=== PATIENT | female | born 1965 | race Two or more races ===

== ENCOUNTER 2019-06-12 20:29 | Emergency (ER) | payer SELFPAY ==
[~2019-06-12] VITALS: Ht 177.8 cm; Wt 93.0 kg
[~2019-06-12 20:29] MED LIST: NKM; VICODIN 5-5001 EACH PO
--- NOTE | 2019-06-12 21:05 | NUR ---
ED Nurse Note: PT WALKED IN C/O MID ABD PAIN X3DAYS. PT STATES NVD. PT DENIES EATING,DRINKING OR OTHER CAUSES FOR THE PAIN. PT STATES DIFFICULTY URINATING. VSS, NAD, ERMD AT BEDSIDE, FAMILY AT BEDSIDE. WILL CONTINUE TO MONITOR PATIENT.
[2019-06-12] MEDS ORDERED: Morphine Sulfate 4mg/ml Inj (IV USE ONLY) IVP ONE (21:15)
--- NOTE | 2019-06-12 21:15 | NUR ---
ED Nurse Note: BLOOD AND URINE COLLECTED AND SENT TO LAB.
--- NOTE | 2019-06-12 21:15 | Emergency Room Report ---
History of Present Illness General Chief Complaint: Abdominal Pain Source: Patient Present Illness [facility] This a 54-year-old female with history of high blood pressure. She presents with chief complaint abdominal pain. Onset for last 3 days but worse today. Pain is sharp and crampy. Has nausea and vomiting and diarrhea. No fever chills. No trauma. No urinary complaint. Worse with movement. Better with rest. Pain is 9 out of 10. Allergies: Coded Allergies: No Known Allergies (Unverified , 06/12/19) Patient History Past Medical History: see triage record, old chart reviewed, HTN Past Surgical History: none Pertinent Family History: none Social History: Denies: smoking Now: No Immunizations: other Reviewed Nursing Documentation: PMH: Agreed; PSxH: Agreed Nursing Documentation-PMH Hx Hypertension: Yes Hx Gastrointestinal Problems: Yes - gallstone Review of Systems Eye: Denies: eye pain, blurred vision ENT: Denies: ear pain, nose congestion, throat swelling Respiratory: Denies: cough, shortness of breath Cardiovascular: Denies: chest pain, palpitations Gastrointestinal: Reports: abdominal pain, diarrhea, nausea, vomiting Musculoskeletal: Denies: back pain, joint pain Skin: Denies: rash Neurological: Denies: headache, numbness Endocrine: Denies: increased thirst, increased urine Hematologic/Lymphatic: Denies: easy bruising All Other Systems: negative except mentioned in HPI Physical Exam Vital Signs Date Time Temp Pulse Resp B/P (MAP) Pulse Ox O2 Delivery O2 Flow Rate FiO2 06/12/19 20:59 98.6 92 16 164/100 (121) 97 Room Air Vitals with high blood pressure Sp02 EP Interpretation: reviewed, normal General Appearance: well appearing, no apparent distress, alert Head: normocephalic, atraumatic Eyes: bilateral eye PERRL, bilateral eye EOMI ENT: hearing grossly normal, normal pharynx Neck: full range of motion, supple, no meningismus Respiratory: chest non-tender, lungs clear, normal breath sounds Cardiovascular #1: regular rate, rhythm, no murmur Gastrointestinal: no mass, no organomegaly, no bruit, non-distended, tenderness - Diffuse, decreased bowel sounds Musculoskeletal: back normal, normal range of motion, gait/station normal Psychiatric: mood/affect normal Medical Decision Making Diagnostic Impression: Primary Impression: Ureteritis Additional Impression: UTI (urinary tract infection) Qualified Codes: N30.00 - Acute cystitis without hematuria ER Course Patient presents with upper back pain. CT scan significant for both ureters are mildly dilated with periureteral stranding. She does have a urinary tract infection. This may be a sending UTI/pyelonephritis. Pain is well controlled. Labs unremarkable. Will discharge home with antibiotics. Rocephin given here. CT/MRI/US Diagnostic Results CT/MRI/US Diagnostic Results : Imaging Test Ordered: CT abdomen pelvis Impression Read by radiologist. Both ureter are dilated with stranding. No stone seen. Bladder thickening. Last Vital Signs Date Time Temp Pulse Resp B/P (MAP) Pulse Ox O2 Delivery O2 Flow Rate FiO2 06/12/19 20:59 98.6 92 16 164/100 (121) 97 Room Air Status: improved Disposition: HOME, SELF-CARE Condition: Stable Scripts Hydrocodone Bit/Acetaminophen 5-325* (NORCO 5-325*) 1 Each Tablet 1 TAB ORAL Q6H PRN for For Pain, #10 TAB 0 Refills Prov: Trevin Gutierrez MD 06/12/19 Ibuprofen* (MOTRIN*) 600 Mg Tablet 600 MG ORAL THREE TIMES A DAY, #30 TAB 0 Refills Prov: Trevin Gutierrez MD 06/12/19 Cephalexin* (KEFLEX*) 500 Mg Capsule 500 MG ORAL TID, #30 CAP Prov: Trevin Gutierrez MD 06/12/19 Additional Instructions: Increase fluids. Follow-up with your doctor in 3 to 5 days for recheck. Return if symptoms worsen. Trevin Gutierrez MD Jun 12, 2019 21:15
[2019-06-12 21:45] LABS: APPEARANCE,URINE VERY CLOUDY; BILIRUBIN, URINE NEGATIVE (NEGATIVE); COLOR,URINE PALE YELLOW; GLUCOSE, URINE (UA) NEGATIVE (NEGATIVE); KETONES,URINE NEGATIVE (NEGATIVE); LEUKOCYTE ESTERASE ,URINE 3+ (NEGATIVE); NITRITE,URINE POSITIVE (NEGATIVE); PH,URINE 7 (4.5-8.0); PROTEIN,URINE 3+ (NEGATIVE); UROBILINOGEN,URINE NORMAL MG/DL (0.0-1.0)
[2019-06-12 21:53] LABS: BASOPHILS % (AUTO) 0.7 % (0.0-2.0); EOSINOPHILS % (AUTO) 0.6 % (0.0-3.0); HEMATOCRIT 38.4 % (37.0-47.0); HEMOGLOBIN 12.6 G/DL (12.0-16.0); LYMPHOCYTES % (AUTO) 22.6 % (20.0-45.0); MEAN CORPUSCULAR VOLUME 82 FL (80-99); NEUTROPHILS % (AUTO) 67.1 % (45.0-75.0); PLATELET COUNT 393 K/UL (150-450); RED BLOOD COUNT 4.68 M/UL (4.20-5.40); RED CELL DISTRIBUTION WIDTH 13.5 % (11.6-14.8); WHITE BLOOD COUNT 12.9 K/UL (4.8-10.8)
--- NOTE | 2019-06-12 22:00 | NUR ---
ED Nurse Note: PT WENT FOR CT VIA WHEELCHAIR ACCOMPANIED BY RESIDENTIAL SERVICE TECHNICIAN.
[2019-06-12 22:04] VITALS: BP 134/86
[2019-06-12 22:04] LABS: ANION GAP 10 mmol/L (5-15); BLOOD UREA NITROGEN 17 mg/dL (7-18); CALCIUM 9.4 MG/DL (8.5-10.1); CARBON DIOXIDE 29 MMOL/L (21-32); CHLORIDE 106 MMOL/L (98-107); CREATININE 1.2 MG/DL (0.55-1.30); POTASSIUM 3.7 MMOL/L (3.5-5.1); SODIUM 144 MMOL/L (136-145)
[2019-06-12 22:09] LABS: ALANINE AMINOTRANSFERASE 35 U/L (12-78); ALBUMIN 3.5 G/DL (3.4-5.0); ALBUMIN/GLOBULIN RATIO 0.7 (1.0-2.7); ALKALINE PHOSPHATASE 135 U/L (46-116); ASPARTATE AMINO TRANSFERASE 24 U/L (15-37); BILIRUBIN,TOTAL 0.3 MG/DL (0.2-1.0)
[2019-06-12] MEDS ORDERED: cefTRIAXone 1 GM in NS 55 ML IVPB ONE (22:15)
--- NOTE | 2019-06-12 22:20 | NUR ---
ED Nurse Note: PT BACK FROM CT VIA WHEELCHAIR ACCOMPANIED BY INTERMEDIATE MANAGER.
--- NOTE | 2019-06-12 22:21 | Diagnostic Imaging Report ---
EXAM: CT Abdomen and Pelvis Without Intravenous Contrast CLINICAL HISTORY: ABD PAIN TECHNIQUE: Axial computed tomography images of the abdomen and pelvis without intravenous contrast. CTDI is 36 mGy and DLP is 2213 mGy-cm. One or more of the following dose reduction techniques were used: automated exposure control, adjustment of the mA and/or kV according to patient size, use of iterative reconstruction technique. COMPARISON: No relevant prior studies available. FINDINGS: Lung bases: No mass. No consolidation. ABDOMEN: Liver: Mild steatosis. Gallbladder and bile ducts: Unremarkable. Pancreas: No ductal dilation. Spleen: Unremarkable. Adrenals: Unremarkable. Kidneys and ureters: No obstructing stones. No hydronephrosis. Both ureters are mildly dilated with periureteral stranding. Stomach and bowel: No bowel obstruction. No bowel wall thickening. PELVIS: Appendix: No evidence of appendicitis. Bladder: No stones. Mild wall thickening. Reproductive: Unremarkable. ABDOMEN and PELVIS: Intraperitoneal space: Unremarkable. Bones/joints: No acute fractures. Soft tissues: Unremarkable. Vasculature: No abdominal aortic aneurysm. Lymph nodes: No enlarged lymph nodes. IMPRESSION: Both ureters are mildly dilated with periureteral stranding. No stone is identified. Likely her represents ascending inflammatory/infectious ureteritis. Mild bladder wall thickening, correlate with cystitis.
[2019-06-12] MEDS ORDERED: IBUPROFEN600 MG ORAL (23:02)
[2019-06-12] MEDS ORDERED: NORCO 5-325 TA1 EACH ORAL (23:02)
[2019-06-12] MEDS ORDERED: CEPHALEXIN500 MG ORAL (23:02)
[2019-06-12 23:15] VITALS: BP 136/79
--- NOTE | 2019-06-12 23:15 | NUR ---
ER DISCHARGE NOTE: Patient is cleared to be discharged per ERMD, pt is aox4, on room air, with stable vital signs. pt was given dc and prescription instructions, pt was able to verbalize understanding, pt id band and iv site removed without complications. pt is able to ambulate with steady gait. pt took all belongings.
== END 2019-06-12 23:15 | disposition home or self-care (01) ==
LOC: EMR 21:17
DX: N30.00 Acute cystitis without hematuria (principal); N28.89 Other specified disorders of kidney and ureter; I10 Essential (primary) hypertension
CPT/HCPCS: 36415; 74176; 80053; 81003; 83690; 85025; 87086; 87181; 96361; 96365; 96375; 99284; J0696; J2270; J2405; J7030